=== PATIENT | female | born 1970 | race Caucasian/White ===

== ENCOUNTER 2024-01-22 10:55 | Emergency (ER) | payer OTHER ==
[2024-01-22 11:00] VITALS: BP 152/99; PULSE 87; RESP 18; TEMP 98.2; BMI 28.3
[2024-01-22 12:33] LABS: URINE APPEARANCE CLEAR; URINE BILIRUBIN NEGATIVE (NEGATIVE); URINE COLOR YELLOW; URINE GLUCOSE (UA) NEGATIVE (NEGATIVE); URINE KETONE NEGATIVE (NEGATIVE); URINE LEUK ESTERASE NEGATIVE (NEGATIVE); URINE NITRITE NEGATIVE (NEGATIVE); URINE PROTEIN NEGATIVE (NEGATIVE); URINE UROBILINOGEN 0.2 mg/dL (0.2-1.0)
[2024-01-22] MEDS ORDERED: METOCLOPRAMIDE HCL INJECTION 10 MG/2 ML VIAL ONE (12:33)
[2024-01-22] MEDS ORDERED: ACETAMINOPHEN INJECTION 100 ML ONE (12:33)
[2024-01-22] MEDS: ACETAMINOPHEN 1000 MG/100 ML BAG IVPB ONE (12:43)
[2024-01-22] MEDS: SODIUM CHLORIDE 0.9% 500 ML INFUS.BAG IV ONE (12:43)
[2024-01-22] MEDS: METOCLOPRAMIDE HCL INJECTION 10 MG/2 ML VIAL IVPUSH ONE (12:43)
[2024-01-22] MEDS: KETOROLAC TROMETHAMINE 15 MG/ML VIAL IVPUSH ONE (14:09)
== END 2024-01-22 14:10 | disposition home or self-care (01) ==
LOC: JER 10:55
PROC: 3E033NZ Introduction of Analgesics, Hypnotics, Sedatives into Peripheral Vein, Percutaneous Approach (ICD-10-PCS; principal; 2024-01-22)
PROC: 3E033GC Introduction of Other Therapeutic Substance into Peripheral Vein, Percutaneous Approach (ICD-10-PCS; 2024-01-22)
DX: R51.9 Headache, unspecified (principal)
CPT/HCPCS: 70450-TC; 81003; 87086; 99284-25; J0131